=== PATIENT | male | born 1985 | race Caucasian/White ===

== ENCOUNTER 2018-02-03 02:37 | Emergency (ER) | END 2018-02-03 04:19 | disposition home or self-care (01) ==

== ENCOUNTER 2019-01-16 00:11 | Emergency (ER) | payer OTHER ==
[~2019-01-16] VITALS: Ht 170.2 cm; Wt 70.0 kg
[2019-01-16 00:13] VITALS: BP 131/81; PULSE 70; RESP 19; Ht 170.2 cm; Wt 70.0 kg
--- NOTE | 2019-01-16 00:27 | ERD ---
ER Documentation Chief Complaint Chief Complaint sharmila villalobos from [place] with pd for lac to forehead HPI This is a 33-year-old male brought in by [employer] for booking clearance. The patient said he was talking with his friend and some neighbors called the police because he thought they were fighting. The patient said they were not fighting and when the [employer] told him to turn around for handcuff the patient said no why am I going to do that he did not do anything wrong and he said the police jumped on him and pushed him to the floor. He did hit his forehead on the left side and midline forehead at the hairline on the ground. He said he has no headache. He said he has no LOC, no dizziness no vertigo no focal neurological complaints ROS All systems reviewed and are negative except as per history of present illness. Medications Home Meds Reported Medications [none] Unknown Strength No Conflict Check 02/03/18 Allergies Allergies: Coded Allergies: No Known Allergy (Unverified , 02/03/18) PMhx/Soc Hx Alcohol Use: Yes Hx Substance Use: Yes (Cystalmeth) Hx Tobacco Use: No Smoking Status: Never smoker FmHx Family History: No coronary disease Physical Exam Vitals Vital Signs Date Temp Pulse Resp B/P (MAP) Pulse Ox O2 O2 Flow FiO2 Time Delivery Rate 01/16/19 98.2 70 19 131/81 100 Room Air 00:13 (98) 01/16/19 98.2 81 19 126/65 100 00:13 (85) Physical Exam Const: Well-developed, well-nourished Head: There is mild contusion to the left side of the forehead,, there is a very small 1 to 2 mm superficial lack at the middle of the forehead at the hairline but no facial pain or instability normocephalic Eyes: Normal Conjunctiva, PERRLA, EOMI, normal sclera, no nystagmus ENT: Normal External Ears, Nose and Mouth, moist mucus membranes. Neck: Full range of motion. No meningismus, no lymphadenopathy. Resp: Clear to auscultation bilaterally, no wheezing, rhonchi, rales Cardio: Regular rate and rhythm, no murmurs, S1 S2 present Abd: Soft, non tender x 4, non distended. Normal bowel sounds, no guarding or rebound, no pulsitile abdominal masses or bruits Skin: No petechiae or rashes, no ecchymosis , no maculopapular rash Back: No midline or flank tenderness Ext: No cyanosis, or edema, FROM x 4, normal inspection, neurovascularly intact x 4 Neur: Awake and alert, STR 5/5 x 4, sensation intact x 4, no focal findings, cerebellum intact Psych: Normal Mood and Affect Procedures/MDM Patient is okay to book he does not meet criteria for CAT scan at this time Will discharge with police Departure Diagnosis: Primary Impression: Encounter for medical clearance for patient hold Additional Impression: Head contusion Encounter type: initial encounter Contusion of head detail: other part of head Qualified Codes: S00.83XA - Contusion of other part of head, initial encounter Condition: Stable TUSHAR WEINSTEIN DO Jan 16, 2019 00:27
== END 2019-01-16 01:19 ==
LOC: E/R 00:11
DX: S00.83XA Contusion of other part of head, initial encounter (principal); Y04.8XXA Assault by other bodily force, initial encounter; Z02.89 Encounter for other administrative examinations
CPT/HCPCS: 99282